=== PATIENT | female | born 2005 | race Two or more races ===

== ENCOUNTER 2024-08-26 13:50 | Emergency (ER) | payer MEDICAID, SELFPAY ==
[2024-08-26 13:52] VITALS: BMI 22.1
[2024-08-26 13:55] VITALS: BP 147/86; PULSE 99; RESP 16; TEMP 36.8; O2SAT 98
--- NOTE | 2024-08-26 13:56 | XR_ITS ---
Examination: OB Transvaginal ultrasound of the pelvis, complete Technique: Transvaginal sonographic images pelvis performed using jett scale imaging Exam date and time: August 26, 2024 1427 hrs. Indications: Vaginal bleeding beginning August 23, 2024 Findings: Uterus 8.6 x 4.5 x 6.2 cm pole 0.4 cm corresponds to 6 weeks 1 day gestational age Cardiac motion 119 bpm Right ovary 2.7 x 1.9 x 1.9 cm arterial flow Left ovary 3.3 x 2.0 x 2.7 cm arterial flow corpus luteum cyst Impression: Viable intrauterine gestation 6 weeks 1 day No subchorionic hemorrhage.
[2024-08-26 14:20] LABS: Basophils % (Auto) 0 % (0-2.5); Eosinophils # (Auto) 0.1 Thou/mm3 (0.0-0.5); Eosinophils % (Auto) 1 % (0-10); Hemoglobin 12.2 g/dL (12.0-16.0); Immature Granulocytes % (Auto) 0 % (0-0); Immature Granulocytes Auto 0.02 Thou/mm3 (0.00-0.00); Lymphocytes # (Auto) 2.1 Thou/mm3 (1.0-4.8); Lymphocytes % (Auto) 23 % (10-50); Mean Corpuscular HGB Conc 32.1 g/dl (31.0-37.0); Mean Corpuscular Volume 81 fL (80-100); Monocytes % (Auto) 11 % (0-12); Neutrophils % (Auto) 65 % (37-80); Nucleated Red Blood Cell % 0 /100 WBC (0); Platelet Count 345 Thou/mm3 (140-440); White Blood Count 9.1 Thou/mm3 (3.6-11.0)
[2024-08-26 14:43] LABS: Alanine Aminotransferase 12 U/L (10-49); Albumin, Serum 4.5 gm/dL (3.5-5.0); Albumin/Globulin Ratio 1.4 (1.2-2.2); Alkaline Phosphatase 93 U/L (46-116); Anion Gap 5 (7-16); Aspartate Amino Transferase < 8 U/L (0-34); BUN/Creatinine Ratio 9 Ratio (12-20); Bilirubin,Total 0.4 mg/dL (0.3-1.2); Blood Urea Nitrogen 6 mg/dL (9-23); Calcium 9.7 mg/dL (8.3-10.6); Calcium (Corrected) 9.7 mg/dL (8.5-10.1); Carbon Dioxide 24.9 mMol/L (20.0-31.0); Chloride 104 mMol/L (98-107); Creatinine (Component) 0.7 mg/dL (0.6-1.3); Estimated Creatinine Clearance 100.5 mL/min (>60); Globulin 3.2 gm/dL (2.3-3.5); Glucose 123 mg/dL (74-106); Osmolality,Calculated 266 (275-295); Potassium 3.6 mMol/L (3.4-5.1); Sodium 134 mMol/L (136-145); Total Protein 7.7 gm/dL (5.7-8.2); eGFR > 60 See Note
[2024-08-26 14:44] LABS: HCG,Qualitative Serum Positive
[2024-08-26 16:52] LABS: Beta HCG,Quantitative 29376 mIU/mL (<5.0)
--- NOTE | 2024-08-26 17:10 | EDNOTE_ITS ---
ED OB Contraction Preg RMI/HPI General Chief complaint: Recheck/Abnormal Lab/Rx Stated complaint: need repeat hcg Time Seen by Provider: 08/26/24 13:56 Arrival date/time: 08/26/24 13:50 19-year-old female presents emergency department today instructed to return for repeat hCG levels patient seen 3 days ago Limitations: no limitations Related Data Allergies Allergy/AdvReac Type Severity Reaction Status Date / Time No Known Allergies Allergy Verified 08/26/24 13:53 Review of Systems Review of Systems Systems Reviewed: All systems reviewed, normal except as documented Constitutional Constitutional: Reports system reviewed and no additional complaints, except as documented, Denies fever(s) and Denies headache(s) Eyes Eyes: Reports system reviewed and no additional complaints, except as documented and Denies blurry vision ENT Ears, Nose, Mouth, and Throat: Reports system reviewed and no additional complaints, except as documented, Denies headache(s), Denies nasal congestion and Denies nasal discharge Cardiovascular Cardiovascular: Reports system reviewed and no additional complaints, except as documented, Denies chest pain and Denies dyspnea Respiratory Respiratory: Reports system reviewed and no additional complaints, except as documented, Denies chest congestion, Denies cough and Denies dyspnea Gastrointestinal Gastrointestinal: Reports system reviewed and no additional complaints, except as documented and Denies abdominal pain Genitourinary Genitourinary: Reports system reviewed and no additional complaints, except as documented, Reports abnormal vaginal bleeding, Denies dysuria and Denies pelvic pain Integumentary/Breasts Skin/Breast: Reports system reviewed and no additional complaints, except as documented and Denies rash Neurologic Neurologic: Reports system reviewed and no additional complaints, except as documented, Reports as per HPI and Denies headache(s) Past Medical History Past Medical History NEUROLOGIC: Negative Neurological Disorders CARDIAC: Negative Cardiac Disorders Social History SMOKING STATUS: Never smoker ED Exam General Limitations: Present no limitations General appearance: Present alert and in no apparent distress Head Head exam: Present atraumatic Eye Eye exam: Present normal appearance, PERRL and EOMI ENT ENT exam: Present normal exam, normal oropharynx and mucous membranes moist Neck Neck exam: Present normal inspection, full ROM and trachea midline Chest Chest inspection: Present normal inspection and symmetric chest wall rise Respiratory Respiratory exam: Present normal lung sounds bilaterally Cardiovascular Cardiovascular exam: Present regular rate, normal rhythm and normal heart sounds Abdominal Exam Abdominal exam: Present soft and normal bowel sounds; Absent distention or tenderness Extremities Exam Extremities exam: Present normal inspection and full ROM Back Exam Back exam: Present normal inspection and full ROM Neurological Exam Neurological exam: Present alert, oriented X3 and CN II-XII intact Psychiatric Psychiatric exam: Present normal affect and normal mood Skin Skin exam: Present warm, dry, intact and normal color Course Quality Measures none Orders Category Date Time Status US OB transvaginal Stat Exams 08/26/24 13:56 Completed Beta HCG,Quantitative Stat Lab 08/26/24 14:04 Completed CBC Stat Lab 08/26/24 14:04 Completed CMP [Comprehensive Metabolic Panel] Stat Lab 08/26/24 14:04 Completed HCG,Qualitative Serum Stat Lab 08/26/24 14:04 Completed Vital Signs Vital signs: Vital Signs Temperature 98.3 F 08/26/24 13:55 Pulse Rate 99 08/26/24 13:55 Respiratory Rate 16 08/26/24 13:55 Blood Pressure 147/86 H 08/26/24 13:55 Pulse Oximetry (%) 98 08/26/24 13:55 Oxygen Delivery Method Room Air 08/26/24 13:55 O2 saturation 98% room air within normal limits Vaginal Bleeding MDM Narrative MDM Narrative: 19-year-old female presents emergency department today instructed to return for repeat hCG levels patient seen 3 days ago On exam patient well-appearing patient does not appear ill or toxic patient reports that she had bleeding 3 days ago which has resolved Repeat lab work and hCG as well as ultrasound obtained ultrasound consistent with viable Patient discharged home in no distress to follow-up with primary care doctor in the next 24 to 48 hours and for any worsening symptoms to return to the ER immediately Patient data External records reviewed:: [facility] previous records Clinical information provided by:: patient Social determinants that could affect healthcare access:: none Patient has the following chronic illnesses:: None How is presenting disease/condition affected by chronic disease/condition?: no chronic disease Evaluation data The following diagnostics were reviewed and interpreted by me:: lab results and radiology exam(s) Lab and/or radiology exams considered but not ordered:: Labs and radiology obtained Interpretation Summary: Reviewed by me Medications / Prescriptions Medications or Prescriptions considered but not ordered:: No meds Medication administrations:: No meds Consultations Consultation(s) initiated? (list below): No Diagnosis Vaginal Bleeding Differential Diagnosis: missed , threatened and dysfunctional uterine bleeding Most likely diagnosis given after review of the tests above:: Bleeding early , viable Admission Indicated Admission indicated?: not indicated Admission Request Was there a request for admission?: No Disposition Plan Disposition Plan: Discharge Discharge Attestation Discharge Attestation: The patient and all family members were given an opportunity to ask questions and understood the discharge instructions. Discharge instructions specifically effects, indications for sooner follow up or return to the emergency department, and the expected course of current diagnosis. Patient condition: Stable Discharge Plan Plan Patient Disposition: HOME (Self Care) Disposition Comment: Stable Prescriptions/Referrals Referrals: Joaquín Calvin MD [Primary Care Provider] - 08/27/24 Problem List Clinical Impression: Bleeding in early Patient/Caregiver Discharge Instructions Education Materials: Bleeding During Early Additional Instructions: Please follow up with your primary care doctor in the next 24-48hrs for any worsening symptoms return here immediately Print Language: Rwandan Stand Alone Forms: Jennifer Award Info., Patient Portal Info Letter PA/REGGIE Supervising Physician VIKY/REGGIE Supervising Physician: Dr. Jones
== END 2024-08-26 21:56 | disposition home or self-care (01) ==
PROVIDERS: Nurse Practitioner Primary Care; Emergency Provider Emergency Medicine; PCP Family Medicine
DX: O20.9 Hemorrhage in early pregnancy, unspecified (principal); Z3A.01 Less than 8 weeks gestation of pregnancy
CPT/HCPCS: 36415; 76817; 80053; 84702; 84703; 85025; 99284

== ENCOUNTER 2024-12-05 14:36 | Observation (INO) | payer MEDICAID, SELFPAY ==
[2024-12-05 14:52] VITALS: BP 137/76; PULSE 96
[2024-12-05 14:53] VITALS: BP 132/76; PULSE 100
[2024-12-05 14:57] VITALS: BP 132/76; PULSE 95; RESP 16; RESP 97; TEMP 36.4; O2SAT 97; BMI 23.4
--- NOTE | 2024-12-05 15:46 | XR_ITS ---
Examination: Complete OB ultrasound greater than 14 weeks Date and time of exam: December 05, 2024 1603 hours INDICATIONS: Vaginal bleeding onset today Findings: Viable intrauterine single fetus with single amniotic sac presentation cephalic Cardiac motion 150 BPM Placenta anterior fundal grade 2 Clinical: Insertion 3 vessel seen Amniotic fluid index adequate spine maternal right Cervix 3.4 cm Ovaries obscured by bowel gas. Composite estimated gestational age based on BPD, head circumference, abdominal circumference, femur length is 20 weeks 5 days Estimated weight 361 g. Survey of intracranial anatomy, spinal anatomy, abdominal anatomy, four-chamber heart performed with no abnormalities identified. Impression: Viable intrauterine gestation cephalic presentation Placenta anterior fundal grade 2 no abruption.
[2024-12-05 16:11] LABS: Collection Type, Urine Clean Catch
[2024-12-05 16:28] LABS: Bilirubin,Urine Negative (Negative); Blood,Urine Negative (Negative); Clarity,Urine Clear (Clear/Hazy); Color,Urine Colorless (Lt Yel-Yel); Glucose, Urine Negative (Negative); Ketones,Urine Negative (Negative); Leukocyte Esterase,Urine Negative (Negative); Nitrite,Urine Negative (Negative); Protein,Urine Negative (Neg - Trace); RBC,Urine 1 /hpf (0-3); Specific Gravity,Urine 1.002 (1.001-1.035); Squamous Epithelial Cell,Urine 1 /hpf (0-5); Urobilinogen,Urine Negative mg/dL (0.0-1.0); WBC,Urine < 1 /hpf (0-5)
== END 2024-12-05 16:56 | disposition home or self-care (01) ==
PROVIDERS: Admitting Provider Student in an Organized Health Care Education/Training Program; Visit Provider Student in an Organized Health Care Education/Training Program
DX: O26.852 Spotting complicating pregnancy, second trimester (principal); Z3A.20 20 weeks gestation of pregnancy
CPT/HCPCS: 59025; 59899; 76805; 81001

== ENCOUNTER 2025-04-14 05:18 | Inpatient (IN) | payer MEDICAID, SELFPAY ==
[2025-04-14] VITALS (184 sets, daily range): BP systolic 121–170; BP diastolic 62–107; PULSE 64–118; RESP 17–97; TEMP 37.1–37.7; O2SAT 89–100; BMI 27.8
--- NOTE | 2025-04-14 06:10 | ESHP_ITS ---
Documentation for date of: 04/14/25 OB Labor/Induct. HPI History of Present Illness Chief complaint: ROM : 1 Para: 0 Term pregnancies: 0 pregnancies: 0 Living children: 0 History of Abortions: Spontaneous and Elective: 0 History of Vaginal deliveries: 0 History of sections: No History of : No TRESA: 04/19/25 Gestational Age (weeks): 39 Gestational Age (days): 2 History of present illness: Aparna is a 20-year-old 1 para 0 at 39 weeks and 2 days who arrived to the unit via wheelchair complaining of across leakage of fluid. On presentation rupture of membranes was confirmed to cross pool of amniotic fluid. Patient is being admitted in early labor. She receives care at [facility] with HOLLIM and we do not have her records at this time. Patient denies any contractions or vaginal bleeding and reports adequate movements. Verbally she denies any medical complications during . History of Present Adequate Care: Yes Labs Labs: Negative: Group Beta Strep Past Medical History Surgical History SURGICAL: Negative Section Meds Home Medications and Allergies Allergies Allergy/AdvReac Type Severity Reaction Status Date / Time No Known Allergies Allergy Verified 08/26/24 13:53 OB Exam Physical Exam Vital signs: Temp Pulse Resp BP 98.7 F 80 17 129/89 H 04/14/25 05:32 04/14/25 05:38 04/14/25 05:32 04/14/25 05:38 Constitutional Constitutional: no acute distress Routine HEENT Exam Head: Present normocephalic and atraumatic Eye: Present EOMI and PERRL ENT: Present mucous membranes moist Routine Neck Exam Neck: Present supple and trachea midline Routine Cardiovascular Exam Cardiovascular: Present RRR Routine Abdominal Exam Abdominal: Present soft and normoactive bowel sounds Detailed Labor and Delivery Exam Dilation (cm): 0 Effacement (%): 0 Cervix position: mid station: -3 Consistency: medium Presentation: Vertex Baseline heart rate: 135 monitor accelerations: 15x15 monitor decelerations: None Contraction frequency (min): 5-7 Routine Extremities Exam Extremities: Present full ROM Routine Skin Exam Skin: Present intact, dry and warm Routine Neurological Exam Neurological: Present alert, oriented X3 and CN II-XII intact Routine Psychiatric Exam Psychiatric: Present normal affect and normal thought process OB Assessment & Plan Assessment and Plan (1) Spontaneous rupture of membranes: Status: Acute Assessment and plan: Admit to inpatient status for labor and delivery IV access, LR at 125 cc/h, labs to include CBC type and screen RPR Called [facility] to obtain records, still pending Pitocin augmentation once records and presentation are verified Pain management as per protocol Continuous maternal and monitoring (2) Primigravida in third trimester: Status: Acute
[2025-04-14] MEDS: RINGERS LACTATED 1000 ML 1,000 ML 125 ML IV ×3 (06:52→18:51)
[2025-04-14 06:58] LABS: Basophils # (Auto) 0.0 Thou/mm3 (0.0-0.2); Basophils % (Auto) 0 % (0-2.5); Eosinophils # (Auto) 0.1 Thou/mm3 (0.0-0.5); Eosinophils % (Auto) 1 % (0-10); Hematocrit 31.3 % (36.0-46.0); Hemoglobin 10.2 g/dL (12.0-16.0); Immature Granulocytes Auto 0.13 Thou/mm3 (0.00-0.00); Lymphocytes # (Auto) 2.0 Thou/mm3 (1.0-4.8); Lymphocytes % (Auto) 17 % (10-50); Mean Corpuscular HGB Conc 32.6 g/dl (31.0-37.0); Mean Corpuscular Hemoglobin 25.2 pg (25.0-35.0); Mean Corpuscular Volume 77 fL (80-100); Monocytes # (Auto) 1.2 Thou/mm3 (0.0-0.8); Monocytes % (Auto) 10 % (0-12); Neutrophils # (Auto) 8.5 Thou/mm3 (1.8-7.7); Neutrophils % (Auto) 71 % (37-80); Nucleated Red Blood Cell # 0.00 Thou/mm3 (0.00-0.00); Nucleated Red Blood Cell % 0 /100 WBC (0); Platelet Count 258 Thou/mm3 (140-440); RDW Standard Deviation 41.5 fL (36.4-46.3); Red Blood Count 4.05 Miln/mm3 (4.00-5.20); White Blood Count 12.0 Thou/mm3 (3.6-11.0)
[2025-04-14 07:06] LABS: Collection Type, Urine Clean Catch
[2025-04-14 07:24] LABS: Alanine Aminotransferase < 7 U/L (10-49); Albumin, Serum 3.5 gm/dL (3.5-5.0); Albumin/Globulin Ratio 1.3 (1.2-2.2); Alkaline Phosphatase 201 U/L (46-116); Anion Gap 9 (7-16); Aspartate Amino Transferase 24 U/L (0-34); BUN/Creatinine Ratio 10 Ratio (12-20); Bilirubin,Total 0.3 mg/dL (0.3-1.2); Blood Urea Nitrogen 6 mg/dL (9-23); Calcium 8.5 mg/dL (8.3-10.6); Calcium (Corrected) 8.9 mg/dL (8.5-10.1); Carbon Dioxide 20.2 mMol/L (20.0-31.0); Chloride 108 mMol/L (98-107); Creatinine (Component) 0.6 mg/dL (0.6-1.3); Estimated Creatinine Clearance 128.5 mL/min (>60); Globulin 2.7 gm/dL (2.3-3.5); Glucose 79 mg/dL (74-106); Osmolality,Calculated 270 (275-295); Potassium 3.9 mMol/L (3.4-5.1); Sodium 137 mMol/L (136-145); Total Protein 6.2 gm/dL (5.7-8.2); Uric Acid 6.3 mg/dL (3.1-7.8); eGFR > 60 See Note
[2025-04-14 07:30] LABS: Syphilis Nonreactive (Nonreactive)
[2025-04-14 07:33] LABS: Amorphous Crystals,Urine Present (Absent); Bacteria,Urine Rare; Bilirubin,Urine Negative (Negative); Blood,Urine 2+ (Negative); Calcium Oxalate Crystals,Urine Rare; Glucose, Urine Negative (Negative); Ketones,Urine Negative (Negative); Nitrite,Urine Negative (Negative); PH,Urine 7.0 (5.0-7.0); Protein,Urine 2+ (Neg - Trace); RBC,Urine 19 /hpf (0-3); Specific Gravity,Urine 1.008 (1.001-1.035); Squamous Epithelial Cell,Urine 83 /hpf (0-5); Transitional Epi Cells,Urine 3 /hpf (0-5); Urobilinogen,Urine Negative mg/dL (0.0-1.0); WBC,Urine 14 /hpf (0-5)
[2025-04-14 07:39] LABS: Clarity,Urine Turbid (Clear/Hazy)
--- NOTE | 2025-04-14 07:39 | PD.LDPN ---
Documentation for date of: 04/14/25 OB Labor Progress Note Pain Control Comments: None Pelvic Exam Dilation (cm): 1.5 Effacement (%): 80 station: -2 Amniotic membrane status: Ruptured Comments: Vtx per RN exam. Contractions Monitor mode: External Contraction frequency: 3-5 Contraction pattern: Coupling Contraction intensity: Mild Status status: Category l Assessment and Plan Comments: IUP 39wks based on LMP and 1st trimester US SROM at 0400 04/14. Not in labor Induction of labor with Pitocin. Anticipate . Informed consent obtained, the patient was made aware of the risks, complications, alternatives and benefits of the proposed procedure and she agrees.
[2025-04-14 07:40] LABS: Color,Urine Lt-Yellow (Lt Yel-Yel); Leukocyte Esterase,Urine Positive (Negative)
[2025-04-14 07:52] LABS: Creatinine,Random Urine 47 mg/dL (30-125); Protein Total, Random Urine 208 mg/dL (1-14)
[2025-04-14] MEDS: OXYTOCIN in NS 30 units 30 UNIT/500 ML BAG IV (08:13)
[2025-04-14 12:20] LABS: Fibrinogen 426 mg/dL (175-375); INR 0.9 (0.9-1.3); Partial Thromboplastin Time 25.4 Seconds (22.0-36.0); Prothrombin Time 9.7 Seconds (9.0-12.2)
[2025-04-14] MEDS: fentaNYL CIT INJ 50 mCg/ML AMP 2ML 100 MCG IVP (13:36)
[2025-04-14] MEDS: ACETAMINOPHEN IVPB 1,000 MG/100 ML VIAL 250 MG IV (21:46)
[2025-04-14] MEDS: Ampicillin Inj 2,000 MG in SODIUM CHLORIDE 0.9% (POP) 100 ML 100 MG IV (22:05)
[2025-04-14] MEDS: GENTAMICIN/NS 80 MG IVPB 80 MG in PRE-MIXED 1 BAG 50 MG IV (22:48)
[2025-04-15] VITALS (108 sets, daily range): BP systolic 130–179; BP diastolic 63–113; PULSE 74–144; RESP 16–18; TEMP 36.4–37.6; O2SAT 84–100
[2025-04-15] MEDS: OXYTOCIN in NS 20 units 20 UNIT/1,000 ML BAG 125 UNIT IV (02:56)
[2025-04-15] MEDS: LIDOCAINE HCL 1% 20 ML VIAL INFL (03:04)
[2025-04-15] MEDS: BENZO/LANO/ALOE (Dermoplast) 60 GM CAN 1 SPRAY TOP (03:23)
[2025-04-15] MEDS: IBUPROFEN TAB 400 MG TABLET 800 MG PO (03:25)
[2025-04-15] MEDS: TRANEXAMIC ACID 1,000 MG IVPB 1,000 MG/100 ML BAG 200 MG IV (03:25)
--- NOTE | 2025-04-15 03:28 | PD.LDDS ---
DS: Providers Provider Date of admission: 04/14/25 06:01 Primary care physician: Physician No Primary/Family Admitting Provider: Rahat Quick MD Attending Provider on Admission: Matteo Duke MD Attending Provider on DC: Matteo Duke MD Discharging Provider: Matteo Duke MD DS: Diagnosis Discharge Diagnosis (1) Spontaneous rupture of membranes: Status: Inactive (2) Primigravida in third trimester: Status: Inactive (3) Chorioamnionitis: Status: Acute (4) (normal spontaneous vaginal delivery): Status: Inactive Problem List Completed Was Problem List Reviewed/Reconciled?: Yes Summary/Hosp Course Brief History: Aparna is a 20-year-old 1 para 0 at 39 weeks and 2 days who arrived to the unit via wheelchair complaining of across leakage of fluid. On presentation rupture of membranes was confirmed to cross pool of amniotic fluid. Patient is being admitted in early labor. She receives care at [facility] with [facility] and we do not have her records at this time. Patient denies any contractions or vaginal bleeding and reports adequate movements. Verbally she denies any medical complications during . Peripartum Data Delivery Method: Normal Vaginal Delivery Episiotomy Description: None Laceration Description: see Delivery Summary [place] 1: Gender: Male Disposition of : home Time Spent with Patient Time attestation: Total time spent providing and/or coordinating discharge services: Exam Vital Signs Temp Pulse Resp BP Pulse Ox 99.7 F 111 H 20 140/65 H 98 04/15/25 00:24 04/15/25 03:15 04/14/25 20:01 04/15/25 03:15 04/15/25 03:24 Discharge Plan Plan Patient Disposition: HOME (Self Care) Patient condition on transfer: Stable Prescriptions/Referrals Prescriptions/Med Rec: New ibuprofen 600 mg tablet 600 mg PO Q6H PRN (Reason: pain) Qty: 30 0RF docusate sodium [Colace] 100 mg capsule 100 mg PO BID Qty: 60 0RF lanolin 50 % ointment 1 applic topical TID PRN (Reason: skin irritation) Qty: 15 0RF ferrous sulfate [Joel-Time] 325 mg (65 mg iron) tablet 325 mg PO BID Qty: 60 0RF Referrals: No Primary/Family,Physician [Primary Care Provider] - Patient/Caregiver Discharge Instructions Meds to Beds: No Discharge Activity: activity as tolerated Other Discharge Activity Instructions:: Follow up office 3 with DARREL [place] Education Materials: After a Vaginal , After Delivery Concerns, Incision Care After Vaginal , Nutrition While , : Caring for Yourself Print Language: Welsh Stand Alone Forms: Jennifer Award Info., Patient Portal Info Letter Discharge Order Discharge Orders: Discharge (Routine); Ordered 04/16/25 Ordered By: Nena Cagle Planned Discharge Date 04/16/25 (3) Chorioamnionitis Qualifiers: Fetus number: single or unspecified fetus Trimester: third trimester Qualified Code(s): O41.1230 - Chorioamnionitis, third trimester, not applicable or unspecified
--- NOTE | 2025-04-15 03:29 | OBDSUM_ITS ---
Data (Stone) Data Hx Section: No : 1 Term: 0 : 0 Livin Abortions: Spontaneous & Theraputic: 0 Delivery Data (Stone) Labor Data Initiation of labor: Spontaneous Induction/Augmentation Agent: Pitocin ROM date: 04/14/25 ROM time: 04:30 Amniotic membrane rupture type: Spontaneous Amniotic fluid description: Clear Delivery Data EDC: 04/19/25 EDC calculated by:: LMP/early US confirmation Onset of labor date: 04/14/25 Onset of labor time: 04:30 Complete dilation date: 04/15/25 Complete dilation time: 02:10 [place] delivery date: 04/15/25 delivery time: 02:55 Gestational age (weeks): 39 Gestational age (days): 3 Placenta delivery date: 04/15/25 Placenta delivery time: 03:09 Stage 1 total time: Labor - Stage 1 Duration 21 hours and 40 minutes Delivered by: Matteo Duke Delivery nurse: Mandy Abarca nurse: Pema Enamorado Identity Management Consultant at delivery: No Support person(s) at delivery: FOB, mother Other staff at delivery: Marilyn Edgar Delivery Method Delivery method: Normal Vaginal Delivery Presentation: Vertex position: OA Anesthesia Type Anesthesia Type: Epidural Placenta Placenta delivery description: Spontaneous Cord blood sent to lab: Yes cord blood collection: Cord Blood Type Episiotomy Episiotomy description: None Lacerations #1: Perineal: 2nd degree Perineal repair Sutures used for repair: 3.0 Chromic EBL Estimated blood loss (ml): 150 Umbilical Cord cord description: 3 Vessels Complications Complications: None [place] Data (Stone) [place] Data order: 1 's gender: Male Identification band number: [id number] weight (gms): 6 lb 15.642 oz Weight (pounds): 6 lbs and 15.6 ozs [place] length: 19.25 in 1 minute: 9 5 minutes: 9
[2025-04-15] MEDS: AMPICILLIN IV (04:07)
[2025-04-15] MEDS: SODIUM CHLORIDE 0.9% IV (04:07)
[2025-04-15] MEDS: GENTAMICIN/NS 80 MG IVPB 80 MG in PRE-MIXED 1 BAG 50 MG IV (06:30)
[2025-04-15 10:08] LABS: Basophils # (Auto) 0.1 Thou/mm3 (0.0-0.2); Basophils % (Auto) 0 % (0-2.5); Eosinophils # (Auto) 0.1 Thou/mm3 (0.0-0.5); Eosinophils % (Auto) 0 % (0-10); Hematocrit 27.3 % (36.0-46.0); Hemoglobin 9.2 g/dL (12.0-16.0); Immature Granulocytes Auto 0.25 Thou/mm3 (0.00-0.00); Lymphocytes # (Auto) 1.3 Thou/mm3 (1.0-4.8); Lymphocytes % (Auto) 5 % (10-50); Mean Corpuscular HGB Conc 33.7 g/dl (31.0-37.0); Mean Corpuscular Hemoglobin 25.8 pg (25.0-35.0); Mean Corpuscular Volume 77 fL (80-100); Monocytes # (Auto) 1.9 Thou/mm3 (0.0-0.8); Monocytes % (Auto) 7 % (0-12); Neutrophils # (Auto) 24.1 Thou/mm3 (1.8-7.7); Neutrophils % (Auto) 87 % (37-80); Nucleated Red Blood Cell # 0.00 Thou/mm3 (0.00-0.00); Nucleated Red Blood Cell % 0 /100 WBC (0); Platelet Count 245 Thou/mm3 (140-440); RDW Standard Deviation 42.2 fL (36.4-46.3); Red Blood Count 3.56 Miln/mm3 (4.00-5.20); White Blood Count 27.7 Thou/mm3 (3.6-11.0)
[2025-04-15] MEDS: Ampicillin Inj 2,000 MG in SODIUM CHLORIDE 0.9% (POP) 100 ML 100 MG IV ×2 (10:10→17:37)
[2025-04-15 10:17] LABS: Fibrinogen 441 mg/dL (175-375)
--- NOTE | 2025-04-15 10:53 | CHAP ---
Gave a blessing on and family.
[2025-04-15] MEDS: GENTAMICIN/NS 120 MG IVPB 120 MG/100 ML BAG 200 MG IV (11:51)
[2025-04-15 18:13] LABS: Basophils # (Auto) 0.0 Thou/mm3 (0.0-0.2); Basophils % (Auto) 0 % (0-2.5); Eosinophils # (Auto) 0.0 Thou/mm3 (0.0-0.5); Eosinophils % (Auto) 0 % (0-10); Hematocrit 27.1 % (36.0-46.0); Hemoglobin 9.0 g/dL (12.0-16.0); Immature Granulocytes Auto 0.21 Thou/mm3 (0.00-0.00); Lymphocytes # (Auto) 2.5 Thou/mm3 (1.0-4.8); Lymphocytes % (Auto) 10 % (10-50); Mean Corpuscular HGB Conc 33.2 g/dl (31.0-37.0); Mean Corpuscular Hemoglobin 25.5 pg (25.0-35.0); Mean Corpuscular Volume 77 fL (80-100); Monocytes # (Auto) 2.1 Thou/mm3 (0.0-0.8); Monocytes % (Auto) 9 % (0-12); Neutrophils # (Auto) 18.9 Thou/mm3 (1.8-7.7); Neutrophils % (Auto) 80 % (37-80); Nucleated Red Blood Cell # 0.00 Thou/mm3 (0.00-0.00); Nucleated Red Blood Cell % 0 /100 WBC (0); Platelet Count 260 Thou/mm3 (140-440); RDW Standard Deviation 42.7 fL (36.4-46.3); Red Blood Count 3.53 Miln/mm3 (4.00-5.20); White Blood Count 23.7 Thou/mm3 (3.6-11.0)
[2025-04-15 20:06] LABS: Path Review Blood Smear Sent to Pathologist
[2025-04-15 23:11] LABS: Gentamicin, Random < 0.5 mcg/mL (4.0-10.0)
[2025-04-16] MEDS: Ampicillin Inj 2,000 MG in SODIUM CHLORIDE 0.9% (POP) 100 ML 100 MG IV ×2 (00:06→06:29)
[2025-04-16 00:53] VITALS: BP 132/94; PULSE 92; RESP 18; TEMP 36.8; O2SAT 97
[2025-04-16 03:59] VITALS: BP 135/81; PULSE 88; RESP 16; TEMP 37; O2SAT 100
--- NOTE | 2025-04-16 06:09 | ESPR_ITS ---
RE: KELLY SCHULER : 2005 DATE OF SERVICE: 04/16/2025 day #1. The patient denies any problem or complaint. She is voiding. She is ambulating. She is tolerating a regular diet. She is passing flatus. She denies any excessive vaginal bleeding. She denies any dizziness or lightheadedness. She denies any chest pain, palpitations, shortness of breath or lower extremity pain. OBJECTIVE: Vital Signs: Blood pressure is 135/81, heart rate 88, respirations 16, temperature is 98.6, pulse oximetry is 100% on room air. Lungs: Clear to auscultation bilaterally. Heart: Regular rate and rhythm. Abdomen: Fundus is firm, nontender. Extremities: Nontender. Hemoglobin pre-delivery is 9.2, post-delivery is 9.0. ASSESSMENT: day #1, status post spontaneous vaginal delivery, chorioamnionitis. PLAN: Discharge home. Discharge instructions given. Follow up in the office in 6 weeks. DT: 06:01:08 TT: 06:07:00 Ref: [id number] - TID: [id number]
--- NOTE | 2025-04-16 07:35 | PD.LDDS ---
DS: Providers Provider Date of admission: 04/14/25 06:01 Primary care physician: Physician No Primary/Family Admitting Provider: Rahat Quick MD Attending Provider on Admission: Matteo Duke MD Consults: 04/15/25 03:56 Referral Routine Comment: Attending Provider on DC: Nena Cagle CNM Discharging Provider: Nena Cagle CNM Anticipated date of discharge: 04/16/25 DS: Diagnosis Discharge Diagnosis (1) Normal labor and delivery: Status: Acute (2) Encounter for care of lactating mother: Status: Acute (3) Chorioamnionitis: Status: Acute Problem List Completed Was Problem List Reviewed/Reconciled?: Yes Summary/Hosp Course Brief History: Aparna is a 20-year-old 1 para 0 at 39 weeks and 2 days who arrived to the unit via wheelchair complaining of across leakage of fluid. On presentation rupture of membranes was confirmed to cross pool of amniotic fluid. Patient is being admitted in early labor. She receives care at [facility] with DARREL and we do not have her records at this time. Patient denies any contractions or vaginal bleeding and reports adequate movements. Verbally she denies any medical complications during . 04/15/25: Male delivered by [place] 04/16/25: PPD#1 patient is stable and afebrile doing well denies dizziness shortness of breath. Ambulating to the bathroom voiding with no problems. Uterus is nontender fundus firm minimal lochia. Laceration is healing well. Discharge instructions given. Patient to follow-up with Teresa Cagle CNM in 3 weeks Peripartum Data Delivery Method: Normal Vaginal Delivery Episiotomy Description: None Laceration Description: yes and see Delivery Summary complications: other (Chorioamniotis) [place] 1: Gender: Male Status at Discharge Cognitive/behavioral status at discharge: Alert and oriented times Functional status at discharge: independent ambulation Overall status at discharge: patient is progressing back to baseline Time Spent with Patient Time attestation: Total time spent providing and/or coordinating discharge services: Time spent: Greater than 30 minutes Exam Vital Signs Temp Pulse Resp BP Pulse Ox O2 Del Method 98.6 F 88 16 135/81 H 100 Room Air 04/16/25 03:59 04/16/25 03:59 04/16/25 03:59 04/16/25 03:59 04/16/25 03:59 04/16/25 03:59 Constitutional Constitutional: no acute distress Routine HEENT Exam Head: Present normocephalic and atraumatic Eye: Present EOMI, PERRL and normal accommodation ENT: Present mucous membranes moist Routine Neck Exam Neck: Present supple, full ROM and trachea midline Routine Respiratory Exam Respiratory: Present chest non-tender, lungs clear, normal breath sounds and no resp distress Routine Cardiovascular Exam Cardiovascular: Present RRR Routine Abdominal Exam Abdominal: Present soft and normoactive bowel sounds Comments: Uterus nontender Fundus firm Routine Exam External: Present normal urethra appearance and lacerations (Healing); Absent lesions Routine Extremities Exam Extremities: Present full ROM, pulses intact and normal capillary refill; Absent calf tenderness or tenderness Routine Back/Spine/Pelvis Exam Back/Spine: Present full ROM Routine Skin Exam Skin: Present intact, dry and warm Routine Neurological Exam Neurological: Present alert, oriented X3 and CN II-XII intact Routine Psychiatric Exam Psychiatric: Present normal affect and normal thought process Discharge Plan Plan Patient Disposition: HOME (Self Care) Patient condition on transfer: Stable Prescriptions/Referrals Prescriptions/Med Rec: New ibuprofen 600 mg tablet 600 mg PO Q6H PRN (Reason: pain) Qty: 30 0RF docusate sodium [Colace] 100 mg capsule 100 mg PO BID Qty: 60 0RF lanolin 50 % ointment 1 applic topical TID PRN (Reason: skin irritation) Qty: 15 0RF ferrous sulfate [Joel-Time] 325 mg (65 mg iron) tablet 325 mg PO BID Qty: 60 0RF Referrals: No Primary/Family,Physician [Primary Care Provider] - Patient/Caregiver Discharge Instructions Meds to Beds: No Discharge Activity: activity as tolerated Other Discharge Activity Instructions:: Follow up office 3 with Nena Cagle CNM weeks Education Materials: After Delivery [place] Concerns, : Caring for Yourself Print Language: Bhutanese Stand Alone Forms: Jennifer Award Info., Patient Portal Info Letter Discharge Order Discharge Orders: Discharge (Routine); Ordered 04/16/25 Ordered By: Nena Cagle Planned Discharge Date 04/16/25 (3) Chorioamnionitis Qualifiers: Fetus number: single or unspecified fetus Trimester: third trimester Qualified Code(s): O41.1230 - Chorioamnionitis, third trimester, not applicable or unspecified
[2025-04-16 07:58] VITALS: BP 129/82; PULSE 71; RESP 17; TEMP 36.8; O2SAT 98
[2025-04-16 08:23] LABS: Basophils # (Auto) 0.1 Thou/mm3 (0.0-0.2); Basophils % (Auto) 0 % (0-2.5); Eosinophils # (Auto) 0.1 Thou/mm3 (0.0-0.5); Eosinophils % (Auto) 0 % (0-10); Hematocrit 29.1 % (36.0-46.0); Hemoglobin 9.6 g/dL (12.0-16.0); Immature Granulocytes Auto 0.27 Thou/mm3 (0.00-0.00); Lymphocytes # (Auto) 3.1 Thou/mm3 (1.0-4.8); Lymphocytes % (Auto) 16 % (10-50); Mean Corpuscular HGB Conc 33.0 g/dl (31.0-37.0); Mean Corpuscular Hemoglobin 25.5 pg (25.0-35.0); Mean Corpuscular Volume 77 fL (80-100); Monocytes # (Auto) 1.5 Thou/mm3 (0.0-0.8); Monocytes % (Auto) 8 % (0-12); Neutrophils # (Auto) 14.4 Thou/mm3 (1.8-7.7); Neutrophils % (Auto) 75 % (37-80); Nucleated Red Blood Cell # 0.00 Thou/mm3 (0.00-0.00); Nucleated Red Blood Cell % 0 /100 WBC (0); Platelet Count 256 Thou/mm3 (140-440); RDW Standard Deviation 42.4 fL (36.4-46.3); Red Blood Count 3.76 Miln/mm3 (4.00-5.20); White Blood Count 19.4 Thou/mm3 (3.6-11.0)
== END 2025-04-16 09:48 | disposition home or self-care (01) | DRG 560 ==
LOC: S4SX 04-15 03:16 → S4NX 04-15 04:59
PROVIDERS: Obstetrics & Gynecology; Student in an Organized Health Care Education/Training Program; Admitting Provider Obstetrics & Gynecology; Visit Provider Specialist
DX: O42.92 Full-term premature rupture of membranes, unspecified as to length of time between rupture and onset of labor (principal); Z37.0 Single live birth; Z3A.39 39 weeks gestation of pregnancy; O41.1230 Chorioamnionitis, third trimester, not applicable or unspecified; O70.1 Second degree perineal laceration during delivery
CPT/HCPCS: 36415; 59409; 80053; 80170; 81001; 82570; 84156; 84550; 85025; 85384; 85610; 85730; 86780; 86850; 86900; 86901; 94762; J0131; J0290; J1580; J2590; J2795; J3010; J3490; J7050; J7120; A9270